=== PATIENT | male | born 1950 | race Hispanic/Latino ===

== ENCOUNTER 2019-12-28 21:08 | Emergency (ER) | payer OTHER ==
[~2019-12-28] VITALS: Ht 170.2 cm; Wt 69.4 kg
[2019-12-28] MEDS ORDERED: SILVER NITRATE SWABS ONE (21:20)
[2019-12-28] MEDS ORDERED: SILVER NITRATE SWABS TOP ONE (21:45)
== END 2019-12-28 22:14 | disposition home or self-care (01) ==
LOC: ER 21:08
DX: I86.8 Varicose veins of other specified sites (principal)
CPT/HCPCS: 99283

== ENCOUNTER → 2022-06-20 | Day surgery (SDC) | payer OTHER ==
[~2022-06-20] MED LIST: MELATONIN3 MG PO; VITAMIN D310 MCG PO
[2022-06-20 08:40] VITALS: BP 117/86
== END | disposition home or self-care (01) ==
LOC: OR 06:40
PROVIDERS: ATTEND Internal Medicine Gastroenterology
DX: R94.5 Abnormal results of liver function studies (principal); D12.0 Benign neoplasm of cecum; D12.2 Benign neoplasm of ascending colon; D12.3 Benign neoplasm of transverse colon; D12.5 Benign neoplasm of sigmoid colon; K57.30 Diverticulosis of large intestine without perforation or abscess without bleeding; K64.8 Other hemorrhoids; Z88.0 Allergy status to penicillin; Z01.810 Encounter for preprocedural cardiovascular examination; Z68.31 Body mass index [BMI] 31.0-31.9, adult
CPT/HCPCS: 45378; 45385; 88305; 93005

== ENCOUNTER → 2024-08-25 | Day surgery (SDC) | payer OTHER ==
[2024-08-18 15:37] LABS: BASOPHILS # (AUTO) 0.1 (0.0-0.1); BASOPHILS % 0.9 % (0.0-1.0); EOSINOPHILS # (AUTO) 0.2 (0.0-0.4); EOSINOPHILS % 3.4 % (0.0-6.0); HEMATOCRIT 48.7 % (38.2-49.6); HEMOGLOBIN 16.1 g/dL (14.0-18.0); LYMPHOCYTES # (AUTO) 1.9 (1.0-3.2); LYMPHOCYTES % 33.7 % (18.0-39.1); MEAN CORPUSCULAR HEMOGLOBIN 32.5 pg (28-32); MEAN CORPUSCULAR HGB CONC 33.1 g/dL (31-35); MEAN CORPUSCULAR VOLUME 98.4 fL (81-99); MONOCYTES # (AUTO) 0.6 (0.2-0.8); MONOCYTES % 11.2 % (4.4-11.3); NEUTROPHILS # (AUTO) 2.8 (2.1-6.9); NEUTROPHILS % 50.6 % (38.7-80.0); PLATELET COUNT 155 x10e3/uL (140-360); RED BLOOD COUNT 4.95 x10e6/uL (4.3-5.7); WHITE BLOOD COUNT 5.55 x10e3/uL (4.8-10.8)
[~2024-08-25] MED LIST changes: +ALTOPREV40 MG PO; +BIOTIN1 MG PO; +FOLIC ACID0.4 MG PO; +PROPOFOL IV EMULSION 10 MG/ML 20 ML VIAL ONE; +VITAMIN D PO; +VITAMIN D31250 MCG PO; +[UNRECOGNIZED DRUG - OTHER] PO
[2024-08-25] MEDS: LACTATED RINGER'S 1,000 ML ONE (06:01)
[2024-08-25 07:33] VITALS: TEMP 97.1
[2024-08-25 07:50] VITALS: BP 136/80; PULSE 58; RESP 16; O2SAT 99
== END | disposition home or self-care (01) ==
LOC: OR 05:24
PROVIDERS: ATTEND Internal Medicine Gastroenterology
DX: Z09 Encounter for follow-up examination after completed treatment for conditions other than malignant neoplasm (principal); D12.2 Benign neoplasm of ascending colon; D12.3 Benign neoplasm of transverse colon; D12.8 Benign neoplasm of rectum; K57.30 Diverticulosis of large intestine without perforation or abscess without bleeding; K44.9 Diaphragmatic hernia without obstruction or gangrene; Z71.3 Dietary counseling and surveillance; K76.0 Fatty (change of) liver, not elsewhere classified; K75.9 Inflammatory liver disease, unspecified; E11.9 Type 2 diabetes mellitus without complications; Z78.9 Other specified health status; E78.5 Hyperlipidemia, unspecified; E66.01 Morbid (severe) obesity due to excess calories; Z88.0 Allergy status to penicillin; Z01.810 Encounter for preprocedural cardiovascular examination; Z01.812 Encounter for preprocedural laboratory examination
CPT/HCPCS: 36415; 45385; 85025; 88305; 93005; J2704; J7121